=== PATIENT | female | born 1960 | race Two or more races ===

== ENCOUNTER 2020-06-21 13:48 | Outpatient (CLI) | payer MEDICAID ==
[2020-06-21 13:55] VITALS: BP 119/80
--- NOTE | 2020-06-21 14:02 | General Progress Note ---
Subjective ROS Limited/Unobtainable: Yes Allergies: Coded Allergies: No Known Allergies (Unverified , 03/02/20) Objective Last 24 Hour Vital Signs Date Time Temp Pulse Resp B/P (MAP) Pulse Ox O2 Delivery O2 Flow Rate FiO2 06/21/20 13:55 97.6 75 16 119/80 97 General Appearance: alert EENT: normal ENT inspection Neck: supple Cardiovascular: normal rate Respiratory/Chest: lungs clear Abdomen: normal bowel sounds, non tender, soft Extremities: non-tender Assessment/Plan Assessment/Plan: 2 colon polyps hemorrhoids repeat colon in 5 years Praneeth Bland MD Jun 21, 2020 14:02
== END 2020-06-21 15:48 | disposition home or self-care (01) ==
LOC: PAN 13:48
DX: K63.5 Polyp of colon (principal); K64.8 Other hemorrhoids
CPT/HCPCS: 99212